=== PATIENT | female | born 1985 | race Hispanic/Latino ===

== ENCOUNTER 2018-12-31 23:28 | Emergency (ER) | payer OTHER ==
[2019-01-01] MEDS ORDERED: HYDROCODONE/ACETAMINOPHEN 5/325 MG TAB ONE (00:01)
[2019-01-01] MEDS ORDERED: ONDANSETRON ODT 4 MG TAB ONE (00:01)
[2019-01-01] MEDS ORDERED: KETOROLAC TROMETHAMINE 60 MG/2 ML VIAL ONE (02:47)
[2019-01-01] MEDS ORDERED: MORPHINE SULFATE 4 MG/1ML SYG ONE (02:48)
== END 2019-01-01 03:09 | disposition home or self-care (01) ==
LOC: EDH 23:28
DX: S02.5XXA Fracture of tooth (traumatic), initial encounter for closed fracture (principal); S02.401A Maxillary fracture, unspecified side, initial encounter for closed fracture; S00.83XA Contusion of other part of head, initial encounter; Z72.0 Tobacco use; Y04.0XXA Assault by unarmed brawl or fight, initial encounter; Y93.89 Activity, other specified; Y92.89 Other specified places as the place of occurrence of the external cause; Y99.8 Other external cause status
CPT/HCPCS: 70486; 73130; 81025; 96372 ×2; 99285; J1885; J2270